=== PATIENT | female | born 1995 | race Caucasian/White ===

== ENCOUNTER 2021-03-29 08:59 | Observation (INO) ==
--- NOTE | 2021-03-29 09:45 | Emergency Department Note ---
Abdominal Pain HPI General Chief Complaint: Flank Pain Stated Complaint: Gallbladder Time Seen by Provider: 03/29/21 09:37 Source: patient Mode of arrival: ambulatory Limitations: no limitations History of Present Illness HPI Narrative: Narrative: Presents to room T3 in transfer for evaluation of epigastric and right upper quadrant pain. The patient was seen at an outside facility and was noted at that time to have an elevated white blood cell count as well as cholelithiasis on CT. The patient's liver panel including alkaline phosphatase, bilirubin and transaminases are all normal. The patient does not have fever nausea or vomiting. She does report intermittent indigestion over the last several weeks which worsened last night at approximately 11 PM. The patient was treated with Toradol prior to arrival and at the time of my evaluation is comfortable with no complaints. Related Data Home Medications Medication Instructions Recorded Confirmed [id number] acid 1 ea PO DAILY 08/18/18 03/29/21 [ Multi Tablet] Allergies Allergy/AdvReac Type Severity Reaction Status Date / Time vancomycin Allergy Severe Redness of Verified 03/29/21 12:58 Skin Review of Systems ROS ROS Narrative: Narrative: All systems ED: reviewed and negative except as stated. [facility] Narrative Patient History Narrative: Narrative: Medical/Surgical/Family History All Active Problems (Updated 03/30/21 @ 14:25 by Jono Valadez MD) Cholelithiasis (Acute) Cholecystitis, acute with cholelithiasis (Acute) RLQ abdominal pain (Acute) Positive test (Acute) Low back pain (Acute) Spotting affecting (Acute) Family History (Updated 03/29/21 @ 11:14 by Kaelyn Worley MD) Mother Bipolar disorder Sister No problems noted. Brother No problems noted. Social History Smoking Status: Current every day smoker Exam Narrative Narrative: Narrative: General Limitations: no limitations General appearance: Present alert and in no apparent distress Head Head: Present atraumatic, normocephalic and normal inspection Eye Eye: Present normal appearance and EOMI; Absent conjunctival injection ENT ENT: Present normal exam and mucous membranes moist Neck Neck: Present normal inspection and trachea midline Respiratory Respiratory: Present normal lung sounds bilaterally; Absent respiratory distress Cardiovascular Cardiovascular: Present regular rate, normal rhythm and normal heart sounds Adbominal Abdominal: Present soft; Absent distention, tenderness, guarding and rebound Extremities Extremities: Present normal inspection; Absent tenderness Back Back: Present normal inspection; Absent tenderness Neurological Neurological: Present alert, oriented X3 and CN II-XII intact; Absent motor sensory deficit Psychiatric Psychiatric: Present normal affect and normal mood Skin Skin: Present warm (WNL) and dry; Absent rash Course Vital Signs Vital signs: Vital Signs Temperature 97.9 F 03/29/21 09:11 Pulse Rate 76 03/29/21 09:11 Respiratory Rate 18 03/29/21 09:11 Blood Pressure 120/78 03/29/21 09:11 Pulse Oximetry (%) 99 03/29/21 09:11 Temperature 98.9 F 03/30/21 13:48 Pulse Rate 65 03/30/21 13:48 Respiratory Rate 18 03/30/21 13:48 Blood Pressure 128/74 03/30/21 13:48 Pulse Oximetry (%) 95 03/30/21 13:48 [facility] MDM Narrative Medical decision making narrative: Narrative: Patient presents for evaluation and definitive treatment from an outside facility with documented cholelithiasis without evidence of cholecystitis. The patient did have an elevated white blood cell count at 23.5 but no abnormal findings on radiology reports and no abnormal findings in the liver panel. The patient is comfortable on exam. Labs were repeated. The patient will be evaluated by Dr. Worley for further definitive care. Lab Data Result diagrams: 03/30/21 05:00 03/30/21 05:00 Labs: Lab Results 03/29/21 03/30/21 03/30/21 Range/Units 11:12 05:00 05:00 WBC 23.5 H (4.5-11.0) K/mcL RBC 3.80 L (4.00-5.20) M/mcL Hgb 11.7 L (12.0-15.0) g/dL Hct 35.7 L (36.0-48.0) % MCV 93.9 (80.0-100.0) fL MCH 30.8 (26.0-34.0) pg MCHC 32.8 (31.0-36.0) g/dL RDW 14.6 H (11.5-14.5) % Plt Count 228 (140-440) K/mcL MPV 12.4 H (7.4-10.4) fL Neut % (Auto) 88.2 H (38.0-78.0) % Lymph % (Auto) 7.6 L (15.0-49.0) % Gregg % (Auto) 4.0 (1.0-12.0) % Eos % (Auto) 0.1 (0.0-7.0) % Baso % (Auto) 0.1 (0.0-2.0) % Lymph # (Auto) 1.79 (1.50-4.80) K/mcL Gregg # (Auto) 0.93 H (0.10-0.90) K/mcL Eos # (Auto) 0.02 (0.00-0.70) K/mcL Baso # (Auto) 0.03 (0.00-0.20) K/mcL Absolute Neutrophils 20.68 H (1.80-8.00) K/mcL POC PT 12.3 (11.9-14.5) sec POC INR 1.0 (0.8-1.2) Sodium 139 (133-145) mmol/L Potassium 4.6 (3.3-5.1) mmol/L Chloride 105 (96-108) mmol/L Carbon Dioxide 24 (22-30) mmol/L Anion Gap 10.0 (8.0-16.0) BUN 5 L (6-20) mg/dL Creatinine 0.5 L (0.6-1.1) mg/dL GFR Calculation 133 Glucose 101 (70-105) mg/dL Uric Acid 2.7 (2.5-8.0) mg/dL Calcium 8.4 L (8.6-10.4) mg/dL Phosphorus 3.5 (2.5-4.5) mg/dL Magnesium 2.0 (1.6-2.5) mg/dL Total Bilirubin 0.4 (0.1-1.0) mg/dL Direct Bilirubin < 0.2 (0-0.3) mg/dL GGT 14 (5-36) U/L AST 28 (<32) U/L ALT 36 (<40) U/L Alkaline Phosphatase 47 (39-117) U/L Lactate Dehydrogenase 142 (135-225) U/L Total Protein 5.7 L (5.9-8.4) gm/dL Albumin 3.9 (3.2-5.2) gm/dL Globulin 1.8 L (2.2-3.7) gm/dL Albumin/Globulin Ratio 2.2 (1.0-2.3) Triglycerides 100 (<150) mg/dL ED POC Tests ED POC Tests: BRITTANY - SARS Antigen Negative Discharge Plan Patient/Caregiver Discharge Instructions Pt seen by MEDICAL LAB ASSISTANT/PA only: No Clinical Impression: Cholelithiasis Patient Disposition: Xfer As Outpt/Obs ([facility]) Condition: Good Discharge Date/Time: 03/29/21 12:01
--- NOTE | 2021-03-29 11:15 | General Surg History&Physical ---
HPI History of Present Illness Patient information: Note initiated : 03/29/21 at 11:06 am Service Date, if different from initiated Date: [] Patient: Vik Summers a 25 y/o F admitted on for Gallbladder. Chief Complaint: [] History of present illness: Ms. Summers is a 25 year old F admitted with cholelithiasis with cholecystitis. The patient had onset of severe right upper quadrant and epigastric pain last evening. The pain radiated through to her back. She had multiple episodes of nausea and vomiting with emesis consisting of old food and bile. The pain continued and she was seen at an outside hospital and evaluation revealed a tender abdomen. CT showed dilated gallbladder with multiple stones and pericholecystic fluid compatible with acute cholecystitis. Patient could not be treated in the immediate region so she was transferred here for cholecystectomy. Her LFTs are normal. Review of Systems All systems: reviewed and no additional remarkable complaints except as stated PFSH PFSH All Active Problems (Updated 03/29/21 @ 11:15 by Kaelyn Worley MD) Cholecystitis, acute with cholelithiasis (Acute) RLQ abdominal pain (Acute) Positive test (Acute) Low back pain (Acute) Spotting affecting (Acute) Family History (Updated 03/29/21 @ 11:12 by Kaelyn Worley MD) Mother Bipolar disorder Sister No problems noted. Brother No problems noted. MEDS/ALLERGIES Home Medications and Allergies Home Medications Medication Instructions Recorded Confirmed Type [id number] acid 1 ea PO DAILY 08/18/18 08/18/18 History [ Multi Tablet] Allergies Allergy/AdvReac Type Severity Reaction Status Date / Time No Known Drug Allergies Allergy Verified 08/18/18 20:37 Physical Examination Vital Signs Vital signs: Temp Pulse Resp BP Pulse Ox 97.9 F 68 18 112/77 100 03/29/21 09:11 03/29/21 10:46 03/29/21 09:11 03/29/21 10:46 03/29/21 10:46 General physical appearance General physical exam: well developed, well nourished, moderate distress and moderate pain Eyes Eye exam: PERRL and normal ocular movement; negative icteric ENT ENT exam: normal mucosa, no hearing loss and no congestion Head Head exam IM: Present atraumatic, normal inspection and normocephalic Neck Neck exam: no masses, no bruits, trachea midline, no lymphadenopathy and no venous distension Cardiovascular Cardiovascular exam IM: Present normal rate and rhythm, RRR, +S1 and +S2; Absent JVD Respiratory Respiratory exam: normal expansion, normal respiratory effort and clear to auscultation Abdomen Abdomen: Present soft and tender (RUQ and epigastrium) Integumentary Integumentary: Present no rash, no growths and no abnormal pigmentation Neurologic Neurologic: Present normal coordination and normal sensation; Absent memory loss Musculoskeletal Musculoskeletal: Present normal gait and normal posture Psychiatric Psychiatric: Present oriented to time, oriented to person, oriented to place, speech is normal and memory intact Results Labs Labs: All other labs normal. A/P Assessment and plan (1) Cholecystitis, acute with cholelithiasis: Status: Acute Narrative A/P Narrative: Patient is counseled for laparoscopic cholecystectomy. It will be performed later today. Time Spent With Patient Time: Total time spent is greater than 50% in coordination of care (as documented) at patient's floor/unit and/or counseling patient:
[2021-03-29] MEDS ORDERED: PIPERACILLIN SODIUM/TAZOBACTAM 3.375 GM in DEXTROSE 5% IN WATER 50 ML IV SCH (12:30)
[2021-03-29 12:57] LABS: POC Pro Time 12.3 sec (11.9-14.5)
[2021-03-29] MEDS ORDERED: KETAMINE 50 MG/ML ML ONE (13:08)
[2021-03-29] MEDS ORDERED: fentaNYL 100 MCG/2 ML VIAL IV ONE (13:08)
[2021-03-29] MEDS ORDERED: LIDOCAINE HCL/PF 100 MG/5 ML SYRINGE IV ONE (13:08)
[2021-03-29] MEDS ORDERED: ROCURONIUM 10 MG/ML ML IV ONE (13:08)
[2021-03-29] MEDS ORDERED: GLYCOPYRROLATE 0.2 MG/ML VIAL IV ONE (13:08)
[2021-03-29] MEDS ORDERED: MIDAZOLAM 2 MG/2 ML VIAL ONE (13:08)
[2021-03-29] MEDS ORDERED: ONDANSETRON 4 MG/2 ML VIAL ONE (13:08)
[2021-03-29] MEDS ORDERED: DEXAMETHASONE 10 MG/ML VIAL ONE (13:08)
[2021-03-29] MEDS ORDERED: PROPOFOL 200 MG/20 ML VIAL IV ONE (13:08)
[2021-03-29] MEDS ORDERED: BENZOCAINE/MENTHOL 1 LOZENGE PO PRN (13:58)
[2021-03-29] MEDS ORDERED: PROMETHAZINE 25 MG/ML VIAL IM PRN (13:58)
[2021-03-29] MEDS ORDERED: MEPERIDINE 50 MG/ML VIAL IM PRN (13:58)
[2021-03-29] MEDS ORDERED: ACETAMINOPHEN 1,000 MG/100 ML BAG IV ONE (13:58)
[2021-03-29] MEDS ORDERED: IPRATROPIUM/ALBUTEROL 3 ML AMPUL.NEB NEB PRN (13:58)
[2021-03-29] MEDS ORDERED: KETOROLAC 30 MG/ML VIAL IV PRN (13:58)
[2021-03-29] MEDS ORDERED: ONDANSETRON 4 MG/2 ML VIAL IV PRN (13:58)
[2021-03-29] MEDS ORDERED: LABETALOL 5 MG/ML ML IV PRN (13:58)
[2021-03-29] MEDS ORDERED: MEPERIDINE 25 MG/ML VIAL IV PRN (13:58)
[2021-03-29] MEDS ORDERED: LACTATED RINGERS 1,000 ML IV SCH (14:00)
--- NOTE | 2021-03-29 14:16 | Brief Operative Note ---
Brief Operative Note Date of procedure: 03/29/21 Pre-op diagnosis: cholelithiasis with cholecystitis Post-op diagnosis: other (cholelithiasis with cholecystitis) Procedure: laparoscopic cholecystectomy Grafts/Implants: No Anesthesia: GETA Findings: acute and chronic cholecystitis Complications: none Surgeon: Kaelyn Worley Estimated blood loss (cc): 10 Specimens Removed/Pathology: other (gallbladder) Condition: stable Disposition: PACU
[2021-03-29] MEDS ORDERED: LORazepam 2 MG/ML VIAL IV ONE (14:25)
[2021-03-29] MEDS ORDERED: LORazepam 2 MG/ML VIAL ONE (14:26)
[2021-03-29] MEDS: LORazepam 2 MG/ML VIAL IV ONE ×2 (14:32→15:06)
[2021-03-29] MEDS: fentaNYL 100 MCG/2 ML VIAL IV PRN ×4 (14:41→15:04)
[2021-03-29] MEDS: HYDROmorphone 0.5 MG/0.5 ML SYRINGE IV PRN ×2 (15:43→19:57)
[2021-03-29] MEDS: 0.9 % SODIUM CHLORIDE 1,000 ML IV SCH (15:43)
[2021-03-29] MEDS: PIPERACILLIN SODIUM/TAZOBACTAM 3.375 GM in DEXTROSE 5% IN WATER 50 ML IV SCH ×2 (17:30→23:55)
[2021-03-29] MEDS: 0.9 % SODIUM CHLORIDE 10 ML SYRINGE IV SCH (23:09)
[2021-03-30] MEDS: HYDROmorphone 0.5 MG/0.5 ML SYRINGE IV PRN (03:17)
[2021-03-30] MEDS: 0.9 % SODIUM CHLORIDE 10 ML SYRINGE IV SCH ×4 (05:20→23:47)
[2021-03-30] MEDS: PIPERACILLIN SODIUM/TAZOBACTAM 3.375 GM in DEXTROSE 5% IN WATER 50 ML IV SCH ×4 (05:27→23:47)
[2021-03-30] MEDS: 0.9 % SODIUM CHLORIDE 1,000 ML IV SCH (05:28)
[2021-03-30 08:30] LABS: Basophils # (Auto) 0.03 K/mcL (0.00-0.20); Basophils % (Auto) 0.1 % (0.0-2.0); Eosinophils # (Auto) 0.02 K/mcL (0.00-0.70); Eosinophils % (Auto) 0.1 % (0.0-7.0); Hematocrit 35.7 % (36.0-48.0); Hemoglobin 11.7 g/dL (12.0-15.0); Lymphocytes # (Auto) 1.79 K/mcL (1.50-4.80); Lymphocytes % (Auto) 7.6 % (15.0-49.0); Mean Cell Volume 93.9 fL (80.0-100.0); Mean Corpuscular HGB Conc 32.8 g/dL (31.0-36.0); Mean Platelet Volume 12.4 fL (7.4-10.4); Monocytes # (Auto) 0.93 K/mcL (0.10-0.90); Neutrophils % (Auto) 88.2 % (38.0-78.0); Platelet Count 228 K/mcL (140-440); Red Cell Distribution Width 14.6 % (11.5-14.5); WBC 23.5 K/mcL (4.5-11.0)
[2021-03-30] MEDS ORDERED: ACETAMINOPHEN 1,000 MG/100 ML BAG IV ONE (08:34)
[2021-03-30 08:43] LABS: ALT/SGPT 36 U/L (<40); AST/SGOT 28 U/L (<32); Albumin 3.9 gm/dL (3.2-5.2); Albumin/Globulin Ratio 2.2 (1.0-2.3); Alkaline Phosphatase 47 U/L (39-117); Bilirubin,Direct < 0.2 mg/dL (0-0.3); Bilirubin,Total 0.4 mg/dL (0.1-1.0); Blood Urea Nitrogen 5 mg/dL (6-20); Calcium 8.4 mg/dL (8.6-10.4); Carbon Dioxide 24 mmol/L (22-30); Chloride 105 mmol/L (96-108); Globulin 1.8 gm/dL (2.2-3.7); Glomerular Filtration Rate 133; Glucose 101 mg/dL (70-105); Lactate Dehydrogenase 142 U/L (135-225); Phosphorous 3.5 mg/dL (2.5-4.5); Triglycerides 100 mg/dL (<150); Uric Acid 2.7 mg/dL (2.5-8.0)
--- NOTE | 2021-03-30 12:56 | General Surgery Progress Note ---
SUBJECTIVE Subjective Patient information: Note initiated : 03/30/21 at 12:52 pm Service Date, if different from initiated Date: [] Patient: Vik Summers 25 y/o F admitted on for Gallbladder. Chief Complaint: [] Principal diagnosis: Cholelithiasis with cholecystitis Interval history: Patient states that she feels well. She has moderate incisional discomfort. She has not had any nausea or vomiting. Her port sites are unremarkable. Chemistries show that liver panel is normal. Her white blood count is 23,500. She has been afebrile. Advised patient that her discharge will be delayed and we will check her labs in the morning. She will be continued on Zosyn antibiotics. Constitutional Vitals: Vital Signs Temp Pulse Resp BP Pulse Ox 98.9 F 65 20 128/74 95 03/30/21 11:49 03/30/21 11:49 03/30/21 11:49 03/30/21 11:49 03/30/21 11:49 Period Temp Pulse Resp BP Sys/Mclean Pulse Ox Last 24 Hr 97.6 F-99 F 61-107 16-24 101-128/56-87 91-100 Intake and Output 03/29/21 03/30/21 03/30/21 21:59 05:59 13:59 Intake Total 1650 1590 150 Output Total 770 1275 Balance 880 315 150 Weight 200 lb Intake & Output: Intake & Output 03/29/21 03/30/21 03/30/21 21:59 05:59 13:59 Intake Total 1650 1590 150 Output Total 770 1275 Balance 880 315 150 Weight 200 lb Intake: IV 150 1050 150 Sodium Chloride 0.9% 1,000 ml @ 1000 75 mls/hr IV .[id number] JOEL Rx#: [id number] Zosyn 3.375 gm In Dextrose 5% 50 50 50 in Water 50 ml @ 100 mls/hr IV Q6H JOEL Rx#:[id number] Oral 540 IV - Manual Only 1500 Output: Void Amount 750 1275 Estimated Blood Loss 20 Other: Meal applesauce Percent of Meal Consumed 100% Feeding Ability Independent Urine Appearance Clear Clear Clear Urine Color Bright Yellow Bright Yellow Straw Urine Odor Normal Head Head exam: Present atraumatic, normal inspection and normocephalic Eye Eye exam: Present EOMI; Absent scleral icterus Pupils: Present PERRL ENT ENT exam: Present mucous membranes moist and normal oropharynx Neck Neck exam: Present full ROM and normal inspection; Absent lymphadenopathy and tenderness Respiratory Respiratory exam: Present CTAB; Absent rales, rhonchi and wheezes Cardiovascular Cardiovascular exam: Present normal rate and rhythm, RRR and +S1; Absent JVD GI/Abdominal GI/Abdominal exam: Present normal bowel sounds, soft and tenderness (Mild tenderness around port sites); Absent distended, guarding and rebound Extremities Exam Extremities exam: Present full ROM, normal capillary refill and normal inspection Neurological Exam Neurological exam: Present alert, normal gait, oriented X3 and reflexes normal; Absent motor sensory deficit Psychiatric Psychiatric exam: Present normal affect and normal mood Skin Skin exam: Present normal color A/P Assessment and plan (1) Cholecystitis, acute with cholelithiasis: Status: Acute Narrative A/P Narrative: Patient's discharge will be delayed Continue Zosyn Follow-up CBC in the morning Time Spent With Patient Time: Total time spent is greater than 50% in coordination of care (as documented) at patient's floor/unit and/or counseling patient:
[2021-03-30] MEDS ORDERED: ACETAMINOPHEN 1,000 MG/100 ML BAG IV PRN (13:32)
[2021-03-30] MEDS: metroNIDAZOLE 500 MG/100 ML BAG IV SCH ×2 (13:32→17:41)
[2021-03-30] MEDS: oxyCODONE HCL 5 MG TABLET PO PRN ×2 (13:39→18:56)
[2021-03-31] MEDS: metroNIDAZOLE 500 MG/100 ML BAG IV SCH ×3 (00:18→12:32)
[2021-03-31] MEDS: oxyCODONE HCL 5 MG TABLET PO PRN (04:07)
[2021-03-31] MEDS: PIPERACILLIN SODIUM/TAZOBACTAM 3.375 GM in DEXTROSE 5% IN WATER 50 ML IV SCH ×2 (05:12→11:04)
[2021-03-31] MEDS: 0.9 % SODIUM CHLORIDE 10 ML SYRINGE IV SCH ×2 (05:52→12:36)
[2021-03-31 07:29] LABS: Basophils # (Auto) 0.04 K/mcL (0.00-0.20); Basophils % (Auto) 0.3 % (0.0-2.0); Eosinophils % (Auto) 0.7 % (0.0-7.0); Hematocrit 34.8 % (36.0-48.0); Hemoglobin 11.1 g/dL (12.0-15.0); Lymphocytes # (Auto) 4.01 K/mcL (1.50-4.80); Lymphocytes % (Auto) 29.9 % (15.0-49.0); Mean Cell Volume 96.4 fL (80.0-100.0); Mean Corpuscular HGB Conc 31.9 g/dL (31.0-36.0); Mean Platelet Volume 12.3 fL (7.4-10.4); Monocytes # (Auto) 1.02 K/mcL (0.10-0.90); Monocytes % (Auto) 7.6 % (1.0-12.0); Neutrophils % (Auto) 61.5 % (38.0-78.0); Platelet Count 222 K/mcL (140-440); RBC 3.61 M/mcL (4.00-5.20); Red Cell Distribution Width 14.7 % (11.5-14.5); WBC 13.4 K/mcL (4.5-11.0)
[2021-03-31] MEDS: MAGNESIUM HYDROXIDE 30 ML ORAL.SUSP PO SCH ×2 (07:57→09:58)
--- NOTE | 2021-03-31 12:38 | Discharge Summary ---
Discharge Provider Provider Patient information: Note initiated : 03/31/21 at 12:32 pm Service Date, if different from initiated Date: [] Patient: Vik Summers 25 y/o F admitted on 03/30/21 for Gallbladder. Chief Complaint: [] Date of admission: 03/30/21 12:59 Discharge date: 03/31/21 Primary care physician: armando worley Admitting clinician: Kaelyn Worley Attending physician on admission: Kaelyn Worley Consults: 03/29/21 10:44 Consult to Physician [CONS] Stat Comment: Consulting Provider: Kaelyn Worley Reason For Exam: Physician to Consult Attending physician on discharge: Kaelyn Worley Discharging clinician: Kaelyn Worley COURSE Hospital Course Hospital course: 25-year-old female admitted from [facility] a 2- day course of epigastric and right upper quadrant pain radiating through to the back. She had associated nausea with vomiting. CT scan showed multiple gallstones with acute inflammation of the gallbladder with pericholecystic fluid. Patient had acute cholecystitis. She was monitored overnight and underwent cholecystectomy on 29 March. Her white count was increased to 23,000 on the first postoperative day so she was continued on antibiotics. She has remained afebrile for her entire course and her white blood count today is 13.4. Patient is otherwise stable and is discharged home on satisfactory condition. She will be continued on a 1 week course of cefuroxime. Discharge diagnosis: Acute cholecystitis with cholelithiasis Reason for admission: Postoperative cholecystitis Procedures: Laparoscopic cholecystectomy Pertinent studies/significant findings: None Complications: None Time Spent with Patient Time attestation: Total time spent providing and/or coordinating discharge services: Physical Examination Vital Signs Vital signs: Temp Pulse Resp BP Pulse Ox 98.2 F 60 15 102/69 95 03/31/21 11:01 03/31/21 11:01 03/31/21 11:01 03/31/21 11:03/31/21 11:01 General physical appearance General physical exam: well developed, well nourished, no distress and no pain Eyes Eye exam: PERRL and normal ocular movement; negative icteric ENT ENT exam: normal mucosa and no hearing loss Head Head exam IM: Present atraumatic, normal inspection and normocephalic Neck Neck exam: no masses, no bruits, trachea midline, no lymphadenopathy and no venous distension Cardiovascular Cardiovascular exam IM: Present normal rate and rhythm Respiratory Respiratory exam: normal expansion, normal respiratory effort and clear to auscultation Abdomen Abdomen: Present tender (Mild tenderness around port sites otherwise benign abdomen) Integumentary Integumentary: Present no rash, no growths and no abnormal pigmentation Neurologic Neurologic: Present normal coordination and normal sensation Musculoskeletal Musculoskeletal: Present normal gait and normal posture Psychiatric Psychiatric: Present oriented to time, oriented to person, oriented to place, speech is normal and memory intact Discharge Plan Patient/Caregiver Discharge Instructions Activity: increase activity as tolerated Diet: Low Fat Prescriptions: New cefuroxime axetil 500 mg tablet 500 mg PO BID Qty: 14 RF: 0 No Action Multi 1 EACH tablet 1 ea PO DAILY RF: 0 Other Ambulatory Orders: Primary Care Provider - Referral (NOW) Timeframe: [id number] Location: None Selected Ordered By: Kaelyn Worley Follow Up Plan Follow up with: Kaelyn Worley MD [Physician] - 04/12/21 2:15 pm Patient Disposition: Home, Self-Care Prognosis: Good Rehab Potential: Good I certify that the patient requires SNF services: No Overall status at discharge: patient is progressing back to baseline Discharge Orders: Discharge Order (Routine); Ordered 03/31/21 Ordered By: Kaelyn Worley Pending Pending Pending: Resuscitation Status Full Code Diet Regular Diet Start FriMar 30 0800 Hydromorphone HCl (Hydromorphone 0.5 Mg/0.5 Ml Syringe) 0.5 mg IV Q2HP PRN; Protocol PRN Reason: Per Pain Protocol Last Admin: 03/30/21 03:17 Dose: 0.5 mg Documented by: Admin: 03/29/21 19:57 Dose: 0.5 mg Documented by: Admin: 03/29/21 15:43 Dose: 0.5 mg Documented by: SAULO Piperacillin Sod/Tazobactam (Sod 3.375 gm/ Dextrose) 50 mls @ 100 mls/hr IV Q6H JOEL; Protocol Last Infusion: 03/31/21 12:23 Dose: 0 mls/hr Documented by: Admin: 03/31/21 11:04 Dose: 100 mls/hr Documented by: Infusion: 03/31/21 05:50 Dose: 0 mls/hr Documented by: Admin: 03/31/21 05:12 Dose: 100 mls/hr Documented by: Infusion: 03/31/21 00:18 Dose: 0 mls/hr Documented by: Admin: 03/30/21 23:47 Dose: 100 mls/hr Documented by: Infusion: 03/30/21 17:45 Dose: 0 mls/hr Documented by: [facility] [place] Admin: 03/30/21 17:05 Dose: 100 mls/hr Documented by: [facility] [place] [place] Infusion: 03/30/21 13:17 Dose: 0 mls/hr Documented by: Admin: 03/30/21 11:59 Dose: 100 mls/hr Documented by: Cosigned by: SAULO Infusion: 03/30/21 06:00 Dose: 0 mls/hr Documented by: Admin: 03/30/21 05:27 Dose: 100 mls/hr Documented by: Infusion: 03/30/21 00:25 Dose: 0 mls/hr Documented by: Admin: 03/29/21 23:55 Dose: 100 mls/hr Documented by: Infusion: 03/29/21 18:05 Dose: 100 mls/hr Documented by: Admin: 03/29/21 17:30 Dose: 100 mls/hr Documented by: SAULO Metronidazole (Flagyl) 500 mg in 100 mls @ 100 mls/hr IV Q6H JOEL; Protocol Last Infusion: 03/31/21 07:02 Dose: 0 mls/hr Documented by: [facility] [place] [place] Admin: 03/31/21 05:50 Dose: 100 mls/hr Documented by: Infusion: 03/31/21 01:20 Dose: 0 mls/hr Documented by: Admin: 03/31/21 00:18 Dose: 100 mls/hr Documented by: Infusion: 03/30/21 18:45 Dose: 0 mls/hr Documented by: Admin: 03/30/21 17:41 Dose: 100 mls/hr Documented by: [facility] [place] [place] Infusion: 03/30/21 14:41 Dose: 0 mls/hr Documented by: [facility] [place] [place] Admin: 03/30/21 13:32 Dose: 100 mls/hr Documented by: CAROLA Oxycodone HCl (Oxycodone Hcl 5 Mg Tablet) 10 mg PO Q4HP PRN; Protocol PRN Reason: Per Pain Protocol Last Admin: 03/31/21 04:07 Dose: 10 mg Documented by: Admin: 03/30/21 18:56 Dose: 10 mg Documented by: Admin: 03/30/21 13:39 Dose: 10 mg Documented by: CAROLA Sodium Chloride (0.9 % Sodium Chloride 10 Ml Syringe) 10 ml IV Q8 JOEL Last Admin: 03/31/21 05:52 Dose: 10 ml Documented by: Admin: 03/30/21 23:47 Dose: 10 ml Documented by: Admin: 03/30/21 15:52 Dose: Not Given Documented by: Admin: 03/30/21 05:20 Dose: Not Given Documented by: Admin: 03/29/21 23:09 Dose: Not Given Documented by: CARLOS Shift Summary 03/31/21 03:16 Shift Summary by Ki Parekh Addendum entered by Ki Parekh 03/31/21 04:17: Additional dose Roxicodone given @ 0400. Original Note: Pt has rested fairly well tonight. ABD pain well controlled w/ PO Roxicodone 10mg - last dose given @ 1855. ABD lap sites x4 w/ jacqueline, Tegaderm, and scant amt sang drainage. Mild nausea on & off this shift - denies need for PRN med. No BM. Up to BR (I) - voiding QS into hat. AMB in salcido x1 (I) - gait stable w/o device. VS - WNL on R.A.. Pt is A&O x4, calm, pleasant, & cooperative. Initialized on 03/31/21 03:16 - END OF NOTE
[2021-03-31] MEDS ORDERED: LEVOFLOXACIN 750 MG TABLET PO ONE (13:24)
--- NOTE | 2021-04-02 14:10 | Surgical Pathology Report ---
Histology Microscopic Diagnosis Specimen A- GALLBLADDER, CHOLECYSTECTOMY: --- CHRONIC CHOLECYSTITIS WITH CHOLELITHIASIS. --- ONE REACTIVE LYMPH NODE (0/1). Procedural Impression Acute cholecystitis and cholelithiasis. Gross Description Received in formalin labeled with the patient information designated as gallbladder, is a 10.1 x 2.1 x 2.2 cm gallbladder specimen. A metal clamp is present that is not on the cystic duct. The cystic duct is closed with a 0.5 cm staple line. The majority of the serosa is smooth and glistening with approximately 30% roughened brown-lopez. Near the cystic duct there is a 1.0 x 0.5 x 0.7 cm possible lymph node. The mucosa is velvety pink-lopez with no masses or lesions identified. The wall is up to 0.3 cm thick. There are multiple multifaceted brown-green stones found within the gallbladder specimen ranging in size from 1.3 up to 1.6 cm in greatest dimension. Engineer Sergeant sections are submitted in one cassette. (KGW:jun) Electronically Signed Julia Stoddard MD, FCAP Electronically Signed 04/02/2021 14:09
--- NOTE | 2021-04-04 14:31 | Operative Note ---
DATE OF OPERATION: 03/30/2021 DATE OF PROCEDURE: 03/29/2021 PREOPERATIVE DIAGNOSES: Cholelithiasis with cholecystitis. POSTOPERATIVE DIAGNOSES: Cholelithiasis with cholecystitis. PROCEDURE: Laparoscopic cholecystectomy. SURGEON: Kaelyn Worley M.D. FINDINGS: Acute and chronic cholecystitis. DESCRIPTION OF PROCEDURE: Under general anesthesia, the patient's abdomen was prepped and draped in a sterile field. A midline supraumbilical incision was made above the level of the assumed umbilical hernia repair. Veress needle was inserted and abdomen was insufflated with 2.5 liters of CO2. A 12 mm port was placed. Laparoscope was placed. Under videoscopic guidance, a 12 mm port and two 5 mm ports were placed in the right subcostal region. The gallbladder was grasped and positioned. Cystic duct and cystic artery branches were dissected and followed back to the gallbladder. Cystic duct was transected using the Endo JUSTIN stapler close to the gallbladder. Cystic artery was clipped with five clips and divided. The gallbladder was from the infrahepatic bed using electrocautery. Gallbladder was placed in an Endopouch and retrieved. Irrigation was carried out. There was no bleeding or bile leak. CO2 was allowed to escape from the abdomen and the ports were removed. The fascia at the umbilicus was closed with interrupted 0 Vicryl. Skin incisions were closed with jacqueline. The patient tolerated the procedure well. She was awakened and transferred to the postanesthetic care unit in satisfactory condition. LCS:anand Job ID: [id number] Doc ID: [id number] Kaelyn Worley M.D.
== END 2021-03-31 14:13 | disposition home or self-care (01) ==
LOC: ED 08:59 → MEDSUR 11:55 → SUR 11:55 → MEDSUR 15:18
PROVIDERS: ADMIT Family Medicine Adult Medicine; ATTEND Family Medicine Adult Medicine